=== PATIENT | female | born 1985 | race Caucasian/White ===

== ENCOUNTER → 2016-04-29 | Outpatient (REF) | payer OTHER ==
[~2016-04-29] MED LIST: ACET50TA PO; DIBU1OIN TOP; DOCU10CA PO; IBUP60TA PO; MOM30SS PO; VITAPRTA PO
== END ==
LOC: M SFHCLERA 16:41
PROVIDERS: ATTEND Family Medicine
DX: J00 Acute nasopharyngitis [common cold] (principal)